=== PATIENT | female | born 1975 | race American Indian/Alaskan Native ===

== ENCOUNTER 2019-08-24 07:08 | Emergency (ER) | payer BC, OTHER ==
[2019-08-24 07:18] VITALS: BP 130/91
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
[2019-08-24] MEDS ORDERED: ULTRAM PO ONE (08:44)
== END 2019-08-24 09:17 | disposition home or self-care (01) ==
LOC: ED 07:08
DX: S80.212A Abrasion, left knee, initial encounter (principal); M25.551 Pain in right hip; M25.552 Pain in left hip; M94.0 Chondrocostal junction syndrome [Tietze]; Z79.899 Other long term (current) drug therapy; V89.2XXA Person injured in unspecified motor-vehicle accident, traffic, initial encounter; Y93.89 Activity, other specified; Y92.488 Other paved roadways as the place of occurrence of the external cause; Y99.8 Other external cause status
CPT/HCPCS: 71046; 74018; 99283

== ENCOUNTER 2020-08-14 10:47 | Emergency (ER) | payer OTHER ==
[2020-08-14 11:03] VITALS: BP 115/75
--- NOTE | 2020-08-14 11:09 | Emergency Department Report ---
Blank Doc - Documentation Documentation: 44-year-old female that presents with feeling bloating. This initial assessment/diagnostic orders/clinical plan/treatment(s) is/are subject to change based on patient's health status, clinical progression and re- assessment by fellow clinical providers in the ED. Further treatment and workup at subsequent clinical providers discretion. Patient/guardians urged not to elope from the ED as their condition may be serious if not clinically assessed and managed. Initial orders include: 1- Patient sent to [facility] for further evaluation and treatment 2- UA/
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
== END 2020-08-14 13:45 | disposition home or self-care (01) ==
LOC: ED 10:47
DX: K58.9 Irritable bowel syndrome, unspecified (principal); R10.9 Unspecified abdominal pain; Z79.899 Other long term (current) drug therapy
CPT/HCPCS: 99282

== ENCOUNTER 2022-01-29 18:35 | Emergency (ER) | payer OTHER ==
[2022-01-29 19:30] VITALS: BP 131/72
== END 2022-01-30 01:15 | disposition left against medical advice (07) ==
LOC: ED 18:35
DX: M25.551 Pain in right hip (principal); M54.9 Dorsalgia, unspecified; Z53.21 Procedure and treatment not carried out due to patient leaving prior to being seen by health care provider